=== PATIENT | female | born 1965 | race Two or more races ===

== ENCOUNTER 2020-11-05 05:41 | Emergency (ER) | payer MEDICAID, SELFPAY ==
[2020-11-05 05:53] VITALS: BP 137/86; PULSE 74; RESP 20; TEMP 36.6; O2SAT 99; BMI 42.6
--- NOTE | 2020-11-05 06:03 | PC.NURSE ---
AT BEDSIDE FOR PRIMARY ED EVALUATION.
--- NOTE | 2020-11-05 06:12 | CT_ITS ---
EXAMINATION: CG THORACIC AND LUMBAR SPINE. CT PELVIS. CLINICAL INFORMATION: Acute onset pain. Atraumatic. COMPARISON: None TECHNIQUE: 2 mm thin axial and reformatted 2 mm thin sagittal and coronal images of thoracic and lumbar spine were obtained about contrast. Subsequently a minute thin axial and reformatted 0.6 mm thin sagittal and coronal images of pelvis were obtained. DLP [id number]. FINDINGS: THORACIC SPINE: On sagittal reconstructed images there is maintained thoracic kyphosis. The vertebral heights and alignment is normal. There is loss of disc height virtually at all lumbar disc levels with vacuum disc phenomenon at the T6-T7, T7-T8 and T10-T11 disc levels with moderate ventral spondylosis. No lytic or sclerotic process seen. The paravertebral soft tissues are normal. LUMBAR SPINE: On sagittal reconstructed images there is normal lumbar lordosis. The vertebral heights and alignment appears normal. There is mild loss of L2-L3 disc height with vacuum disc phenomena. This mild ventral spondylosis as well. There is mild disc bulge at the L2-L3 with mild canal stenosis. Bilaterally neural foraminal narrowing is noted. L3-L4 disc level is mild diffuse bulge with mild canal narrowing. The neural foramina are narrowed bilaterally. There is underlying bilateral facet joint arthropathy and hypertrophy. At L4-L5 disc level there is diffuse disc bulge slightly eccentric to the right resulting in moderate right and mild left neural foraminal narrowing. At L5-S1 disc level there is no central disc bulge, herniation or spinal stenosis. The neural foramina are patent bilaterally. There is no lytic or sclerotic process seen. The paravertebral soft tissues are normal. PELVIS: There is subchondral cystic changes along the left acetabulum. There is minimal loss of bilateral hip joint space. Mild periarticular spurring is noted. No visible acute fracture, dislocation or lytic process seen. Vacuum disc phenomena along both SI joints. There is scattered colonic diverticulosis without diverticulitis. The soft tissues are normal. CT/CT thoracic spine wo con IMPRESSION: No acute fracture or dislocation thoracic or lumbar spine. Degenerative disc changes T6-T7 and T7-T8 disc levels and thoracic spine. There are degenerative disc bulges at L2-L3 through L5-S1 disc levels with mild circumferential canal stenosis at L2-L3 through L4-L5 disc levels. There is bilateral narrowing of neural foramina. At L5-S1 disc level the bulge is eccentric slightly to the right side with moderate right neural foraminal narrowing. Mild subchondral cystic changes in the left acetabulum with mild bilateral degenerative arthritic changes in the hip joints. No lytic or sclerotic process seen in the spine or the pelvis.
[2020-11-05 06:20] LABS: Basophils Percent Auto 0.5 % (0-2); Eosinophils Absolute Auto 0.2 X10*3/uL (0.0-0.4); Eosinophils Percent Auto 2.1 % (0-4); Hematocrit 38.5 % (37-47); Hemoglobin 12.4 g/dl (12.0-16.0); Imm Gran Abs Auto 0.01 X10*3/uL (0.00-0.03); Imm Gran Pct Auto 0.1 % (0.0-0.4); Lymphocytes Absolute Auto 3.8 X10*3/uL (1.2-4.9); Lymphocytes Percent Auto 42.4 % (20-40); Mean Corpuscular HGB Conc 32.2 g/dl (31.0-35.0); Mean Corpuscular Hemoglobin 29.9 pg (27.0-33.0); Mean Corpuscular Volume 92.8 fL (80-98); Mean Platelet Volume 12.7 fL (9.4-12.3); Monocytes Absolute Auto 1.1 X10*3/uL (0.1-1.2); Monocytes Percent Auto 12.3 % (2-11); Neutrophils Absolute Auto 3.8 X10*3/uL (2.0-8.3); Neutrophils Percent Auto 42.6 % (45-73); Platelet Count 205 X10*3/uL (160-400); Red Blood Count 4.15 X10*6/uL (4.20-5.50); Red Cell Distribution Width 12.3 % (11.0-16.0); White Blood Count 8.8 X10*3/uL (4.8-10.8)
[2020-11-05] MEDS: Acetaminophen 325 MG TABLET 975 MG PO (06:20)
[2020-11-05] MEDS: Ketorolac Tromethamine 15 MG/ML VIAL IM (06:20)
[2020-11-05 06:22] LABS: MANUAL DIFF FLAG NO
--- NOTE | 2020-11-05 06:35 | ED.BACK ---
HPI - Back Pain/Injury General Chief Complaint: Back Pain/Injury Stated Complaint: BACK AND HIP PAIN Time Seen by Provider: 11/05/20 05:43 Source: patient Mode of arrival: ambulatory History of Present Illness HPI Narrative: This is a 54-year-old female who presents with complaints acute on chronic thoracic and L-spine pain that she states has change in care after from previous. In addition, she is also experiencing significant left hip pain that she states radiates into the left lower extremity but denies any weakness. She denies any urine or fecal incontinence, fevers, chills, rashes, urinary pain/burning/frequency. Patient denies any falls or trauma to her back or hip. On review of her chart it appears that she is currently being evaluated by Heme-Onc for abnormal serum protein electrophoresis, but unfortunately the note is not available. Related Data Allergies Allergy/AdvReac Type Severity Reaction Status Date / Time No Known Allergies Allergy Unverified 08/08/20 16:58 [No Known Allergies*] Review of Systems Review of Systems: Pertinent positives and negatives as stated in HPI and 10 point review of systems is otherwise negative. PMFSH Past Medical History Source: nursing notes reviewed Medical History Asthma Back pain Diabetes Fibromyalgia Hip pain HTN (hypertension) MGUS (monoclonal gammopathy of unknown significance) Peripheral neuropathy Family History Family History Father Heart disease Stroke Mother Heart disease Maternal Uncle Colon cancer Maternal Uncle Throat cancer Social History Social History Alcohol intake: current Alcohol intake frequency: other Smoking Status: Current every day smoker Tobacco Type: Cigarette Cigarettes Per Day: 5 Advance Directives: No Advance Directives Information Provided: No Physical Exam Vital Signs: Vital Signs: Last Vital Signs Temp 97.8 F 11/05/20 05:53 Pulse 74 11/05/20 05:53 Resp 20 11/05/20 05:53 BP 137/86 11/05/20 05:53 Pulse Ox 99 11/05/20 05:53 Body Mass Index 42.6 VITAL SIGNS: Reviewed. GENERAL: Well developed, well nourished, in no acute distress. HEAD: Normocephalic/atraumatic, EYES: PERRLA, EOMI intact without pain, no nystagmus/pallor/icterus noted EARS: Ext canals without abnormality, TMs non-bulging and non-erythematous NOSE: Nares patent bilateral OROPHARYNX: no oral lesions noted, posterior pharynx clear and non-erythematous without noted tonsillar enlargement/erythema/exudates NECK: Supple, no adenopathy LUNGS: Normal breath sounds. No adventitious sounds or accessory muscle use. SpO2<99> CARDIOVASCULAR: Regular rate and rhythm without noted murmurs, no JVD or lower extremity edema. ABDOMEN: Soft, non-tender, non-distended with bowel sounds. No rigidity. No guarding. No palpable masses or hernias noted PELVIS: Stable MUSCULOSKELETAL: No tenderness, deformities, or effusions noted on gross inspection. EXTREMITIES: No cyanosis, clubbing or edema;LLE: Neurovascularly intact patient with some limited range of motion due to discomfort at the hip joint. SKIN: Inspection of the skin reveals no rashes, ulcerations, jaundice, pallor, or petechiae. NEUROLOGIC: Alert and oriented x 4. Strength and sensation to light touch were grossly intact x 4. Course Course Course Narrative: This is a 54-year-old female with history and clinical presentation consistent with likely acute on chronic arthritic pain, but due to history of MGUS and acute nature pain without trauma will ensure no evidence of bony abnormalities. In addition, patient will be treated with combination analgesics as well as basic labs. Signed out to Dr Glass: plan to d/c if no lytic lesions and analgesics for arthritis. MDM - Back Pain/Injury Lab Data Result diagrams: 11/05/20 06:15 11/05/20 06:15 Labs: Lab Results 11/05/20 11/05/20 Range/Units 06:15 06:15 WBC 8.8 (4.8-10.8) X10*3/uL RBC 4.15 L (4.20-5.50) X10*6/uL Hgb 12.4 (12.0-16.0) g/dl Hct 38.5 (37-47) % MCV 92.8 (80-98) fL MCH 29.9 (27.0-33.0) pg MCHC 32.2 (31.0-35.0) g/dl RDW 12.3 (11.0-16.0) % Plt Count 205 (160-400) X10*3/uL MPV 12.7 H (9.4-12.3) fL Immature Gran % (Auto) 0.1 (0.0-0.4) % Neut % (Auto) 42.6 L (45-73) % Lymph % (Auto) 42.4 H (20-40) % [place] % (Auto) 12.3 H (2-11) % Eos % (Auto) 2.1 (0-4) % Baso % (Auto) 0.5 (0-2) % Lymph # (Auto) 3.8 (1.2-4.9) X10*3/uL [place] # (Auto) 1.1 (0.1-1.2) X10*3/uL Eos # (Auto) 0.2 (0.0-0.4) X10*3/uL Baso # (Auto) 0.0 (0.0-0.2) X10*3/uL Abs Immat Gran (auto) 0.01 (0.00-0.03) X10*3/uL Absolute Neuts (auto) 3.8 (2.0-8.3) X10*3/uL Absolute Nucleated RBC 0.000 (0.0-0.012) X10*3/uL Nucleated RBC % (auto) 0.0 (0.0-0.2) /100WBC Sodium 140 (135-145) mmol/L Potassium 4.1 (3.3-5.1) mmol/l Chloride 108 (96-108) mmol/L Carbon Dioxide 25 (22-29) mmol/L Anion Gap 11 L (12-20) BUN 18 H (9-16) mg/dL Creatinine 0.71 (0.5-1.4) mg/dL Estim Creat Clear Calc 105.8 Estimated GFR > 60 Random Glucose 104 (60-115) mg/dL Calcium 8.7 (8.4-10.2) mg/dL Total Bilirubin 0.6 (0.0-1.0) mg/dL AST 15 (5-31) U/L ALT 14 (0-31) U/L Alkaline Phosphatase 49 (39-117) U/L Total Protein 7.5 (6.5-8.0) g/dL Albumin 4.1 (3.5-5.0) g/dL
[2020-11-05 06:55] LABS: Alanine Aminotransferase 14 U/L (0-31); Albumin Level 4.1 g/dL (3.5-5.0); Alkaline Phosphatase 49 U/L (39-117); Anion Gap 11 (12-20); Aspartate Amino Transferase 15 U/L (5-31); Bilirubin Total 0.6 mg/dL (0.0-1.0); Blood Urea Nitrogen 18 mg/dL (9-16); Calcium 8.7 mg/dL (8.4-10.2); Carbon Dioxide 25 mmol/L (22-29); Chloride 108 mmol/L (96-108); Creatinine Clr Calc Pharmacy 105.8; Estimated Glomerular Filt Rate > 60; Glucose Random 104 mg/dL (60-115); Potassium 4.1 mmol/l (3.3-5.1); Sodium 140 mmol/L (135-145); Total Protein 7.5 g/dL (6.5-8.0)
[2020-11-05 07:29] VITALS: BP 150/67; PULSE 67; RESP 18; O2SAT 98
[2020-11-05 08:20] VITALS: BP 113/54; PULSE 61; RESP 15; O2SAT 99
== END 2020-11-05 08:51 | disposition home or self-care (01) ==
PROVIDERS: Emergency Provider Student in an Organized Health Care Education/Training Program; PCP Internal Medicine
DX: M54.5 Low back pain (principal); M25.552 Pain in left hip; M25.551 Pain in right hip
CPT/HCPCS: 36415; 72128; 72131; 72192; 80053; 85025; 96372; 99284; J1885

== ENCOUNTER 2020-11-20 14:09 | Emergency (ER) | payer OTHER, SELFPAY ==
[2020-11-20 14:36] VITALS: BP 185/78; PULSE 84; RESP 16; TEMP 36.8; O2SAT 97; BMI 39.9
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
== END 2020-11-20 17:00 | disposition home or self-care (01) ==
PROVIDERS: Emergency Provider Emergency Medicine; PCP Internal Medicine
DX: S16.1XXA Strain of muscle, fascia and tendon at neck level, initial encounter (principal); V43.52XA Car driver injured in collision with other type car in traffic accident, initial encounter; I10 Essential (primary) hypertension; E11.9 Type 2 diabetes mellitus without complications; F17.210 Nicotine dependence, cigarettes, uncomplicated; Y93.89 Activity, other specified; Y92.414 Local residential or business street as the place of occurrence of the external cause; Y99.9 Unspecified external cause status
CPT/HCPCS: 99283

== ENCOUNTER 2020-12-12 09:25 | Outpatient (REF) | payer MEDICAID, SELFPAY | END 2020-12-12 09:26 | disposition home or self-care (01) | LOC: HO.HOSX 09:25 | PROVIDERS: Visit Provider Orthopaedic Surgery | DX: Z13.89 Encounter for screening for other disorder (principal) ==

== ENCOUNTER 2021-01-10 14:22 | Outpatient (REF) | payer MEDICAID, SELFPAY ==
--- NOTE | ~2021-01-10 | XR_ITS ---
EXAMINATION: PELVIS AND LEFT HIP X-RAY CLINICAL INFORMATION: Pain COMPARISON: Previous left hip x-ray March [address] of the pelvis October 2020 TECHNIQUE: One view of the pelvis and 2 views of the left hip FINDINGS: There is bilateral hip arthritis with joint space narrowing and osteophyte formation, left greater than right. No fracture, dislocation or bone lesion is seen. Bones of the pelvis are unremarkable. Soft tissues are unremarkable. XR/XR pelvis 1-2V IMPRESSION: Left hip arthritis.
--- NOTE | ~2021-01-10 | XR_ITS ---
EXAMINATION: PELVIS AND LEFT HIP X-RAY CLINICAL INFORMATION: Pain COMPARISON: Previous left hip x-ray March [address] of the pelvis October 2020 TECHNIQUE: One view of the pelvis and 2 views of the left hip FINDINGS: There is bilateral hip arthritis with joint space narrowing and osteophyte formation, left greater than right. No fracture, dislocation or bone lesion is seen. Bones of the pelvis are unremarkable. Soft tissues are unremarkable. XR/XR hip LT min 2V IMPRESSION: Left hip arthritis.
== END 2021-01-10 14:23 | disposition home or self-care (01) ==
LOC: HO.XRAY 14:22
PROVIDERS: PCP Internal Medicine; Visit Provider Student in an Organized Health Care Education/Training Program
DX: M47.816 Spondylosis without myelopathy or radiculopathy, lumbar region (principal); M25.552 Pain in left hip
CPT/HCPCS: 72170; 73502; 99212

== ENCOUNTER 2021-01-28 18:55 | Outpatient (REF) | payer MEDICAID, SELFPAY ==
--- NOTE | ~2021-01-28 | MR_ITS ---
EXAMINATION: MR LUMBAR SPINE WITHOUT CONTRAST CLINICAL INFORMATION: 55-year-old with complaints of low back pain radiating to the left leg. Spondylosis without myelopathy or radiculopathy, lumbar region. COMPARISON: None TECHNIQUE: MRI of the lumbar spine was obtained using routine sequences without contrast. Technical Note: Images were degraded by motion artifact. FINDINGS: Coronal Alignment:?Normal. Sagittal Alignment:?A 3 mm grade 1 degenerative spondylolisthesis noted at L3-L4. Otherwise, normal spinal alignment. Lumbosacral Junction:?Normal. Vertebral Bodies: Normal height. Bone Marrow: Degenerative endplate changes at L2-L3. No suspicious marrow replacing process. Mild marrow edema noted in the left L4 pedicle which is nonspecific but may be secondary to reactive changes from facet arthropathy or stress reaction. Conus Medullaris:?Terminates at L1.?Morphology and signal is normal. Intradural Nerve Roots: Crowding of the intradural nerve roots at L3-L4. Otherwise, unremarkable. SPINAL LEVELS: L5-S1: Disc space height and signal are well maintained. Small left-sided inferior foraminal disc protrusion noted without definite neural impingement. No significant spondylosis. Minor facet arthrosis noted on the right with a mild right lateral disc osteophyte complex and mild right-sided neural foraminal stenosis. Prominent epidural fat noted at this level, with a small thecal sac with no significant bony or ligamentous canal stenosis. L4-L5: Disc space height is relatively well maintained, with disc desiccation consistent with disc degenerative change. There is anterior and right paravertebral spondylosis and mild diffuse disc bulging encroaching on the neural foramina bilaterally with mild bilateral facet arthropathy. No significant spinal canal stenosis. There is thnp-nq-izxyzgzm right-sided and mild left-sided neural foraminal stenosis with mild encroachment on the exiting right L4 nerve root. L3-L4: Pihi-xo-knvcinqc loss of disc space height is noted with disc desiccation consistent with disc degenerative change. There is grade 1 degenerative spondylolisthesis with diffuse disc bulging with superimposed extraforaminal/foraminal disc herniations bilaterally. There is moderate bilateral facet arthropathy with dtgllgpa-vs-zbyzuc bilateral neural foraminal stenosis, right more the left, with bilateral L3 nerve root impingement. There is prominent epidural fat with a constricted appearance to the dural sac at this level and there is ligamentum flavum thickening with moderate central spinal canal stenosis and crowding of the intradural nerve roots. L2-L3: Moderate loss of disc space height is noted with disc desiccation, Schmorl's nodes and type I and type II marrow signal changes along the endplates with anterior and paravertebral spondylosis. There is diffuse disc bulging with mild flattening of the dural sac and there is mild ligamentum flavum thickening with prominent epidural fat and mild right-sided facet arthrosis. There is nctx-uc-bohzgwzp neural foraminal stenosis bilaterally and there is a mildly constricted appearance to the dural sac with crowding of the intradural nerve roots. L1-L2: Disc space height and signal are well maintained with no significant disc bulge or herniation and no significant spondylosis, DJD, canal or neural foraminal stenosis. Paraspinal/Retroperitoneal: Visualized retroperitoneal soft tissues appear unremarkable. Paraspinal soft tissues appear unremarkable. MR/MR lumbar spine wo con IMPRESSION: 1. Grade 1 degenerative spondylolisthesis at L3-L4 with a possible mild stress reaction in the left L4 pedicle. 2. Discogenic degenerative changes at L2-L3, L3-L4 and L4-L5 as discussed above with multilevel bilateral facet arthropathy and prominent epidural fat throughout the zrz-hd-vgjho lumbar spine with a constricted appearance to the dural sac. 3. Multilevel disc bulging as described above, with moderate spinal canal stenosis at L3-L4 with crowding of the intradural nerve roots and mild spinal canal stenosis at L2-L3 with mild crowding. 4. Multilevel bilateral neural foraminal stenosis as discussed above most apparent at L3-L4 bilaterally. Bilateral L3 nerve root impingement noted at L3-L4 and mild impingement on the exiting right L4 nerve root.
== END 2021-01-28 18:56 | disposition home or self-care (01) ==
LOC: HO.MRI 18:55
PROVIDERS: Visit Provider Student in an Organized Health Care Education/Training Program
DX: M47.816 Spondylosis without myelopathy or radiculopathy, lumbar region (principal)
CPT/HCPCS: 72148

== ENCOUNTER 2021-02-15 07:32 | Emergency (ER) | payer MEDICAID, SELFPAY ==
--- NOTE | ~2021-02-15 | XR_ITS ---
EXAMINATION: XR HIP, LEFT CLINICAL INFORMATION: Left-sided hip pain COMPARISON: Left hip x-rays 01/10/2021 TECHNIQUE: Two views of the left hip. FINDINGS: No fracture or dislocation of the left hip. Femoral head is well-seated within the acetabulum. Mild narrowing of the left femoral acetabular joint space. Small osteophyte along the superolateral left acetabular margin. Pelvic ring is intact. Mild degenerative changes of the partially visualized right hip. XR/XR hip LT w PEL1V IMPRESSION: Mild degenerative changes of the left hip without fracture or dislocation.
[2021-02-15 07:34] VITALS: BP 160/72; PULSE 71; RESP 20; TEMP 36.4; O2SAT 98; BMI 40.9
--- NOTE | 2021-02-15 08:30 | ED.EXTPRO ---
HPI - Extremity Problem General Chief complaint: Extremity Problem Stated complaint: hip pain Time Seen by Provider: 02/15/21 08:24 History of Present Illness HPI Narrative: This is a pleasant 55 years old female who presented to the emergency room a ambulatory with a chief complaint of left hip pain. Denies any trauma, injury, fever, vomiting. She has history of arthritis she is currently taking Naprosyn b.i.d. without any relief of the pain. The pain is worsened in the morning when she gets out of the bed get better during the day today she came because the pain was unbearable Related Data Home Medications Medication Instructions Recorded Confirmed albuterol sulfate 90 mcg/actuation 2 puff INHALATION 6XD 11/28/20 01/10/21 aerosol inhaler lisinopril 10 mg tablet 10 mg PO DAILY 11/28/20 01/10/21 metformin 1,000 mg tablet 1,000 mg PO DAILY 11/28/20 01/10/21 zolpidem 10 mg tablet 10 mg PO BEDTIME PRN 11/28/20 01/10/21 Previous Rx's Medication Instructions Recorded baclofen 10 mg tablet 10 mg PO TID #90 tab 11/07/20 cyclobenzaprine 10 mg PO TID PRN #10 tab 11/20/20 lidocaine [Lidoderm] 1 patch TOPICAL DAILY #15 ea 11/20/20 naproxen 500 mg tablet 500 mg PO BID PRN #60 tab 02/04/21 oxycodone 5 mg PO Q8H PRN #12 cap 02/15/21 Allergies Allergy/AdvReac Type Severity Reaction Status Date / Time No Known Allergies Allergy Verified 02/15/21 07:34 [No Known Allergies*] Review of Systems Review of Systems: Yes all other systems are reviewed and are negative [facility] Past Medical History Medical History Asthma Back pain Diabetes Fibromyalgia Hip pain HTN (hypertension) MGUS (monoclonal gammopathy of unknown significance) Peripheral neuropathy Family History Family History Father Heart disease Stroke Mother Heart disease Maternal Uncle Colon cancer Maternal Uncle Throat cancer Social History Social History Alcohol intake: current Alcohol intake frequency: does not drink Smoking Status: Current every day smoker Tobacco Type: Cigarette Cigarettes Per Day: 5 Use of substances other than those prescribed or required for medical reasons: No Advance Directives: No Advance Directives Information Provided: No Physical Exam Vital Signs: Vital Signs: Last Vital Signs Temp 97.6 F 02/15/21 07:34 Pulse 68 02/15/21 08:44 Resp 16 02/15/21 08:44 BP 140/71 H 02/15/21 08:44 Pulse Ox 98 02/15/21 08:44 Body Mass Index 40.9 Const: General: cooperative, healthy appearing, comfortable, no acute distress, well developed, alert and awake HENMT: Head: Yes normal to inspection Eyes: General: appearance normal, both eyes and all related structures Neck: Neck: Yes normal visual inspection and Yes full ROM Chest: Chest palpation & inspection: normal inspection of the chest and normal palpation of entire chest wall Resp: Effort & Inspection: normal respiratory effort Cardio: Jugular venous distension: no JVD Rate: regular rate GI: Other: Abdomen is soft not tender Skin: Other: Skin is moist no rash Neuro: Other: Patient is awake alert oriented x3 Extrem: Other: On extremity examination and there is tenderness in the left hip per range of motion is full somewhat painful nice rotation seen no deformity seen MDM - Extremity (Nontraumatic) MDM Narrative Medical decision making narrative: I review the x-ray of the hip and pelvis to my review there is no fracture dislocation, patient does have DJD. I think she can be discharged home with follow-up with primary care physician. She is already on naproxen b.i.d. I will home health aide caregiver for 12 tablets of oxycodone for breakthrough pain. Imaging Data xray hip: Attestation: I personally reviewed and interpreted this imaging study as follows: Radiologist's impression: elise PHELPS Date of Service: 01/10/21 Procedure(s): XR hip LT min 2V Accession Number(s): [id number] cc: Kurt Morales MD~ EXAMINATION: PELVIS AND LEFT HIP X-RAY CLINICAL INFORMATION: Pain COMPARISON: Previous left hip x-ray March [address] of the pelvis October 2020 TECHNIQUE: One view of the pelvis and 2 views of the left hip FINDINGS: There is bilateral hip arthritis with joint space narrowing and osteophyte formation, left greater than right. No fracture, dislocation or bone lesion is seen. Bones of the pelvis are unremarkable. Soft tissues are unremarkable. XR/XR hip LT min 2V IMPRESSION: Left hip arthritis. Discharge Plan Discharge Clinical Impression: Left hip pain Patient Disposition: Home, Self-Care Instructions: Hip Pain (ED) Additional Instructions: Please follow-up with the orthopedist, return if you worse Prescriptions: New oxycodone 5 mg capsule 5 mg PO Q8H PRN (Reason: pain) Qty: 12 RF: 0 No Action baclofen 10 mg tablet 10 mg PO TID Qty: 90 RF: 5 lisinopril [Zestril] 10 mg tablet 10 mg PO DAILY RF: 0 metformin 1,000 mg tablet 1,000 mg PO DAILY RF: 0 albuterol sulfate [ProAir HFA] 90 mcg/actuation HFA aerosol inhaler 2 puff inhalation 6XD RF: 0 zolpidem [Ambien] 10 mg tablet 10 mg PO BEDTIME PRNRF: 0 naproxen 500 mg tablet 500 mg PO BID PRN (Reason: pain) Qty: 60 RF: 3 cyclobenzaprine 10 mg tablet 10 mg PO TID PRN (Reason: muscle spasm) Qty: 10 RF: 0 lidocaine [Lidoderm] 5 % adhesive patch,medicated 1 patch topical DAILY Qty: 15 RF: 0 Referrals: Micha Altamirano MD [Physician] - 3 days Interventions: ED Discharge Assessment Last Done: 02/15/21 09:27 Discharge Date/Time: 02/15/21 09:27
[2021-02-15] MEDS: oxyCODONE HCl Immed Release 5 MG TABLET 10 MG PO (08:42)
[2021-02-15 08:44] VITALS: BP 140/71; PULSE 68; RESP 16; O2SAT 98
== END 2021-02-15 09:27 | disposition home or self-care (01) ==
PROVIDERS: Emergency Provider Emergency Medicine; PCP Internal Medicine
DX: M25.552 Pain in left hip (principal); I10 Essential (primary) hypertension; E11.9 Type 2 diabetes mellitus without complications; Z79.899 Other long term (current) drug therapy; F17.210 Nicotine dependence, cigarettes, uncomplicated; Z71.6 Tobacco abuse counseling; Z79.84 Long term (current) use of oral hypoglycemic drugs
CPT/HCPCS: 73502; 99283; 99284

== ENCOUNTER → 2021-02-18 12:54 | Outpatient (BNVA) | payer MEDICAID, SELFPAY | PROVIDERS: PCP Internal Medicine; Visit Provider Nurse Practitioner Family | DX: M47.27 Other spondylosis with radiculopathy, lumbosacral region (principal); M16.12 Unilateral primary osteoarthritis, left hip; M25.552 Pain in left hip | CPT/HCPCS: 99202 ==

== ENCOUNTER → 2021-02-21 09:11 | Outpatient (BNVA) | payer MEDICAID, SELFPAY | PROVIDERS: PCP Internal Medicine; Visit Provider Physician Assistant | DX: M16.12 Unilateral primary osteoarthritis, left hip (principal); M47.27 Other spondylosis with radiculopathy, lumbosacral region | CPT/HCPCS: 99202 ==

== ENCOUNTER 2021-03-07 15:03 | Outpatient (REF) | payer MEDICAID, SELFPAY ==
--- NOTE | ~2021-03-07 | XR_ITS ---
EXAMINATION: XR KNEE, LEFT CLINICAL INFORMATION: Pain COMPARISON: None TECHNIQUE: Four views of the left knee. Frontal lateral oblique and patella sunrise view. FINDINGS: Bones and soft tissues are normal. No fracture or joint effusion. Alignment is anatomic. Joint spaces are well maintained. No abnormal soft tissue calcification. XR/XR knee LT 3V IMPRESSION: Normal radiograph.
== END 2021-03-07 15:04 | disposition home or self-care (01) ==
LOC: HO.XRAY 15:03
PROVIDERS: PCP Internal Medicine; Visit Provider Student in an Organized Health Care Education/Training Program
DX: M25.562 Pain in left knee (principal)
CPT/HCPCS: 73562; 99212

== ENCOUNTER 2021-03-25 06:09 | Outpatient (REF) | payer MEDICAID, SELFPAY ==
--- NOTE | ~2021-03-25 | FL_ITS ---
EXAMINATION: XR FLUOROSCOPY WITH IMAGES CLINICAL INFORMATION: M47.27 - Other spondylosis with radiculopathy COMPARISON: MR lumbar spine 01/28/2021 TECHNIQUE: Fluoroscopy performed by Char Feliz NP. Fluoroscopy time: 0.3 minutes DAP: 7.31 Gycm2 Images: 1 FINDINGS: There is spinal needle overlying outer aspect left L3 neuroforamen. There is contrast seen in the nerve sheath along with transforaminal epidural extension. FL/FL guidance in treatment room IMPRESSION: Fluoroscopy for pain management procedure.
== END 2021-03-25 06:10 | disposition home or self-care (01) ==
LOC: HO.RADIR 06:09
PROVIDERS: Visit Provider Anesthesiology
DX: M47.27 Other spondylosis with radiculopathy, lumbosacral region (principal)
CPT/HCPCS: 64483; J3300; Q9967

== ENCOUNTER → 2021-04-30 10:52 | Outpatient (BNVA) | payer MEDICAID, SELFPAY | PROVIDERS: PCP Internal Medicine; Visit Provider Nurse Practitioner Family | DX: M16.12 Unilateral primary osteoarthritis, left hip (principal); M47.816 Spondylosis without myelopathy or radiculopathy, lumbar region | CPT/HCPCS: 99212 ==

== ENCOUNTER 2021-05-14 08:35 | Emergency (ER) | payer MEDICAID, SELFPAY ==
--- NOTE | ~2021-05-14 | XR_ITS ---
EXAMINATION: XR CHEST CLINICAL INFORMATION: SOB, difficulty breathing COMPARISON: None TECHNIQUE: Frontal view of the chest was obtained. FINDINGS: No significant abnormality is noted involving the heart, lungs, mediastinum, bony thorax or soft tissues. XR/XR chest 1V IMPRESSION: Unremarkable chest examination.
[2021-05-14 08:54] VITALS: BP 167/133; PULSE 89; RESP 22; TEMP 36.8; O2SAT 97; BMI 39.3
--- NOTE | 2021-05-14 09:05 | ECG_ITS ---
Test Reason : DYSPNEA Blood Pressure : / mmHG Vent. Rate : 081 BPM Atrial Rate : 081 BPM P-R Int : 124 ms QRS Dur : 084 ms QT Int : 362 ms P-R-T Axes : 006 009 022 degrees QTc Int : 420 ms Normal sinus rhythm Low voltage QRS Borderline ECG When compared with ECG of 23-JUN-2020 01:38, No significant change was found Referred By: Sarah Hinojosa Electronically Signed By:Floyd Henriquez
[2021-05-14 09:24] VITALS: BP 138/91; PULSE 87; RESP 19; TEMP 36.8; O2SAT 98
--- NOTE | 2021-05-14 09:37 | ED_ITS ---
HPI - SOB/Dyspnea General Chief Complaint: Dyspnea <MICKEY Price - Last Filed: 05/14/21 11:30> Stated Complaint: asthma <MICKEY Price - Last Filed: 05/14/21 11:30> Time Seen by Provider: 05/14/21 09:04 <MICKEY Price Last Filed: 05/14/21 11:30> Source: patient <MICKEY Price - Last Filed: 05/14/21 11:30> Mode of arrival: ambulatory <MICKEY Price - Last Filed: 05/14/21 11:30> Limitations: no limitations <MICKEY Price Last Filed: 05/14/21 11:30> History of Present Illness HPI Narrative: 55 y/o female with history of asthma, active smoker, morbid obesity, OA, chronic back pain who presents to the ER with worsening SOB and wheezing for the last 3 days. She has been taking her asthma inhalers as directed. She continues to smoke cigarettes. She does not know the triggers for her asthma but has required to come to the ED for this in the past. She denies hospitalizations or intubations for her asthma. She denies fever or chills. She has a dry cough and chest discomfort when she coughs. No known sick contacts. She is fully vaccinated against COVID-19. <MICKEY Price - Last Filed: 05/14/21 11:30> MD elicited complaint: shortness of breath <MICKEY Price - Last Filed: 05/14/21 11:30> Pertinent past history: asthma <MICKEY Price - Last Filed: 05/14/21 11:30> Onset (ago): day(s) (3) <MICKEY Price - Last Filed: 05/14/21 11:30> Timing: constant <MICKEY Price - Last Filed: 05/14/21 11:30> Severity: moderate <MICKEY Price Last Filed: 05/14/21 11:30> Exacerbating factors: lying flat and exertion <MICKEY Price Last Filed: 05/14/21 11:30> Relieving factors: rest and bronchodilators <MICKEY Price - Last Filed: 05/14/21 11:30> Known history of: asthma <MICKEY Price - Last Filed: 05/14/21 11:30> Associated symptoms: cough, wheezing and orthopnea <MICKEY Price - Last Filed: 05/14/21 11:30> Treatment prior to arrival: none <MICKEY Price - Last Filed: 05/14/21 11:30> Related Data Home oxygen amount: none <MICKEY Price - Last Filed: 05/14/21 11:30> Home Medications: Home Medications Medication Instructions Recorded Confirmed albuterol sulfate 90 mcg/actuation 2 puff INHALATION 6XD 11/28/20 05/20/21 aerosol inhaler lisinopril 10 mg tablet 10 mg PO DAILY 11/28/20 05/20/21 metformin 1,000 mg tablet 1,000 mg PO DAILY 11/28/20 05/20/21 zolpidem 10 mg tablet 10 mg PO BEDTIME PRN 11/28/20 05/20/21 ergocalciferol (vitamin D2) 50 mcg 50 mcg PO DAILY 05/20/21 05/20/21 (2,000 unit) tablet gabapentin 800 mg tablet 800 mg PO TID 05/20/21 05/20/21 glipizide 5 mg tablet 5 mg PO DAILY 05/20/21 05/20/21 ibuprofen 800 mg tablet 800 mg PO Q6H 05/20/21 05/20/21 sertraline 50 mg tablet 50 mg PO DAILY 05/20/21 05/20/21 tramadol 50 mg tablet 50 mg PO Q6H PRN 05/20/21 05/20/21 trazodone 100 mg tablet 100 mg PO BEDTIME PRN 05/20/21 05/20/21 Previous Rx's Medication Instructions Recorded baclofen 10 mg tablet 10 mg PO TID #90 tab 11/07/20 cyclobenzaprine 10 mg PO TID PRN #10 tab 11/20/20 lidocaine [Lidoderm] 1 patch TOPICAL DAILY #15 ea 11/20/20 diclofenac sodium 1 % topical gel 2 g TOPICAL QID #100 g 03/07/21 leg brace #1 ea 03/07/21 tizanidine 2 mg tablet 2 mg PO BEDTIME PRN #30 tab 04/30/21 azithromycin See Rx Instructions .ROUTE 05/14/21 .COMPLEX #6 tab azithromycin [Zithromax Z-Conrado] See Rx Instructions .ROUTE 05/14/21 .COMPLEX #6 tab benzonatate [Tessalon Perles] 100 mg PO BID PRN #20 cap 05/14/21 benzonatate [Tessalon Perles] 100 mg PO TID PRN #20 cap 05/14/21 prednisone 10 mg PO PER PKG DIR #48 ea 05/14/21 prednisone 40 mg PO DAILY 5 Days #10 tab 05/14/21 fluticasone fur. 200 mcg-umeclid 1 inh INHALATION DAILY 30 Days #60 05/20/21 62.5 mcg-vilant 25 mcg ea inhalat.powder nicotine 14 mg/24 hr daily 1 patch TRANSDERMAL DAILY 28 Days 05/20/21 transdermal patch #28 ea diazepam 5 mg tablet 5 mg PO ONCE PRN #2 tab 06/03/21 naproxen 500 mg tablet 500 mg PO BID PRN #60 tab 06/10/21 <MICKEY Price - Last Filed: 05/14/21 11:30> Allergies/Adverse Reactions: Allergies Allergy/AdvReac Type Severity Reaction Status Date / Time No Known Allergies Allergy Verified 05/20/21 14:19 [No Known Allergies*] <MICKEY Price Last Filed: 05/14/21 11:30> Review of Systems Review of Systems: Constitutional: No Fever, No Chills ENT/Mouth: No sore throat, No Rhinorrhea, No Swallowing Difficulty Eyes: No Eye Pain, No Swelling, No Redness Cardiovascular: + Chest Pain, + SOB, + Orthopnea, No Edema Respiratory: + Cough, No Sputum, + Wheezing, + dyspnea Gastrointestinal: No Nausea, No Vomiting, No Diarrhea, No abdominal Pain Genitourinary: No Dysuria, No Urinary Frequency, No Hematuria Musculoskeletal: No joint pain, No Myalgias Skin: No Skin Lesions, No rash Neuro: No Weakness, No Numbness, No Dizziness, No Headache Psych: No Anxiety/Panic, No Depression Heme/Lymph: No Bruising, No Lymphadenopathy Endocrine: No Polyuria, No Polydipsia <MICKEY Price Last Filed: 05/14/21 11:30> PMFSH Past Medical History Attestation statement: The following information was validated with the patient. <MICKEY Price - Last Filed: 05/14/21 11:30> Medical History: Medical History (Updated 06/06/21 @ 14:25 by Lis Beckman PA-C) Asthma Asthma-COPD overlap syndrome Hip pain HTN (hypertension) MGUS (monoclonal gammopathy of unknown significance) Obesity Peripheral neuropathy Personal history of nicotine dependence Spondylosis of lumbosacral spine with radiculopathy Type 2 diabetes mellitus with diabetic neuropathy, without long-term current use of insulin <MICKEY Price - Last Filed: 05/14/21 11:30> Family History Family History: Family History (Reviewed 03/07/21 @ 15:08 by Zahra Dorsey [facility]) Father Heart disease Stroke Mother Heart disease Maternal Uncle Colon cancer Maternal Uncle Throat cancer <MICKEY Price - Last Filed: 05/14/21 11:30> Social History Social History: Social History (Updated 06/06/21 @ 14:24 by Lis Beckman PA-C) Alcohol intake: current Alcohol intake frequency: does not drink Patient Tobacco Use Status: Current everyday Tobacco user Tobacco use type: Cigarette Cigarettes Per Day: 5 Years Smoked: 36 (onset 19yo - 1/2-1ppd - 27pyh) <MICKEY Price - Last Filed: 05/14/21 11:30> Physical Exam Vital Signs: Vital Signs: Last Vital Signs Temp 98.2 F 05/14/21 09:24 Pulse 90 05/14/21 11:34 Resp 19 05/14/21 09:24 BP 138/91 H 05/14/21 09:24 Pulse Ox 97 05/14/21 11:34 Body Mass Index 39.3 Appearance: Alert. Oriented X3. Mild respiratory distress Eyes: Pupils equal, round and reactive to light. ENT: Pharynx normal. Neck: Normal inspection. Neck supple. CVS: Normal heart rate and rhythm. Pulses normal. Respiratory: Mild respiratory distress. Breath sounds with end expiratory wheeze at bilateral bases to middle lung carlos, prolonged expiratory phase, no rales and no rhonchi. Abdomen: Obese, Soft and nontender. +BS x4 Skin: Skin warm and dry. Normal skin color. Normal skin turgor. No rashes. Extremities: No lower extremity edema. Negative Levi's sign Neuro: Oriented X 3. No motor deficit. No sensory deficit. <MICKEY Price - Last Filed: 05/14/21 11:30> Vital Signs: Last Vital Signs Temp 98.2 F 05/14/21 09:24 Pulse 90 05/14/21 11:34 Resp 19 05/14/21 09:24 BP 138/91 H 05/14/21 09:24 Pulse Ox 97 05/14/21 11:34 Body Mass Index 39.3 <Mick Glass MD - Last Filed: 06/15/21 16:13> Course Course Course Narrative: 55 y/o female presenting with SOB, dry cough for the last 3 days. Exam and clinical presentation is most consistent with asthma exacerbation, likely related to smoking cigarettes and high humidity. She is afebrile. Will get CXR t o r/o PNA. EKG and troponin ordered to r/o ACS although this is less likely given her wheezing. She denies CHF but will check BNP given her SOB when laying flat. Will give hour long albuterol neb, IV steroids, IV mag and reassess. Dispo pending results and improvement. <MICKEY Price - Last Filed: 05/14/21 11:30> I have reviewed the chart <Mick Glass MD - Last Filed: 06/15/21 16:13> Reevaluation(s) Reevaluation #1: CXR clear. Labs are unremarkable. She is feeling much better after treatment. Lung sounds improved. She would like to go home. She is stable for d/c home with prednisone taper, anti-tussive and Z-conrado. Encouraged to stop smoking and f/u with her PCP and Pulmonology. Pt agrees with plan and will return to the ER if symptoms worsen. <MICKEY Price - Last Filed: 05/14/21 11:30> MDM - SOB/Dyspnea Differential Diagnosis Differential diagnosis: Likely acute exacerbation of chronic obstructive airways disease, congestive heart failure, pneumonia, asthma with exacerbation and sleep apnea <MICKEY Price - Last Filed: 05/14/21 11:30> Medical Records Attestation: I reviewed the patient's medical records. <MICKEY Price - Last Filed: 05/14/21 11:30> Lab Data Attestation: I reviewed the patient's lab results. <MICKEY Price - Last Filed: 05/14/21 11:30> Result diagrams: : 05/14/21 09:43 05/14/21 09:43 <MICKEY Price - Last Filed: 05/14/21 11:30> Labs: Lab Results 05/14/21 05/14/21 05/14/21 Range/Units 09:43 09:43 09:43 WBC 10.3 (4.8-10.8) X10*3/uL RBC 4.37 (4.20-5.50) X10*6/uL Hgb 13.0 (12.0-16.0) g/dl Hct 39.9 (37-47) % MCV 91.3 (80-98) fL MCH 29.7 (27.0-33.0) pg MCHC 32.6 (31.0-35.0) g/dl RDW 12.3 (11.0-16.0) % Plt Count 179 (160-400) X10*3/uL MPV 13.5 H (9.4-12.3) fL Immature Gran % (Auto) 0.4 (0.0-0.4) % Neut % (Auto) 54.0 (45-73) % Lymph % (Auto) 34.8 (20-40) % Graham % (Auto) 9.4 (2-11) % Eos % (Auto) 1.0 (0-4) % Baso % (Auto) 0.4 (0-2) % Lymph # (Auto) 3.6 (1.2-4.9) X10*3/uL Graham # (Auto) 1.0 (0.1-1.2) X10*3/uL Eos # (Auto) 0.1 (0.0-0.4) X10*3/uL Baso # (Auto) 0.0 (0.0-0.2) X10*3/uL Abs Immat Gran (auto) 0.04 H (0.00-0.03) X10*3/uL Absolute Neuts (auto) 5.5 (2.0-8.3) X10*3/uL Absolute Nucleated RBC 0.000 (0.0-0.012) X10*3/uL Nucleated RBC % (auto) 0.0 (0.0-0.2) /100WBC Hold Blue Top SEE NOTE Sodium 142 (135-145) mmol/L Potassium 4.4 (3.3-5.1) mmol/L Chloride 107 (96-108) mmol/L Carbon Dioxide 23 (22-29) mmol/L Anion Gap 16 (12-20) BUN 19 H (9-16) mg/dL Creatinine 0.78 (0.5-1.4) mg/dL Estim Creat Clear Calc 90.9 Estimated GFR > 60 Random Glucose 171 H D (60-115) mg/dL Calcium 9.5 D (8.4-10.2) mg/dL Magnesium 1.5 L (1.6-2.6) mg/dL Total Bilirubin 0.6 (0.0-1.0) mg/dL Direct Bilirubin 0.2 (0.0-0.5) mg/dL AST 18 (5-31) U/L ALT 14 (0-31) U/L Alkaline Phosphatase 41 (39-117) U/L Troponin I High Sens (<3.5-17.0) ng/L B-Natriuretic Peptide (<100) pg/mL Total Protein 7.6 (6.5-8.0) g/dL Albumin 4.3 (3.5-5.0) g/dL Urine Color Urine Appearance Urine pH (5.0-8.0) Ur Specific [place] (1.005-1.025) Urine Protein (NEG-TRACE) MG/DL Urine Glucose (UA) (NEG) MG/DL Urine Ketones (NEG) MG/DL Urine Blood (NEG) Urine Nitrite (NEG) Ur Leukocyte Esterase (NEG) Urine RBC (0) /HPF Urine WBC (0-4) /HPF Ur Squamous Epith Cells /LPF Urine Bacteria /LPF Urine Mucus /LPF COVID-19 (SHIRA) (Negative) COVID-19 Clin Com 05/14/21 05/14/21 05/14/21 Range/Units 09:43 09:44 09:45 WBC (4.8-10.8) X10*3/uL RBC (4.20-5.50) X10*6/uL Hgb (12.0-16.0) g/dl Hct (37-47) % MCV (80-98) fL MCH (27.0-33.0) pg MCHC (31.0-35.0) g/dl RDW (11.0-16.0) % Plt Count (160-400) X10*3/uL MPV (9.4-12.3) fL Immature Gran % (Auto) (0.0-0.4) % Neut % (Auto) (45-73) % Lymph % (Auto) (20-40) % Graham % (Auto) (2-11) % Eos % (Auto) (0-4) % Baso % (Auto) (0-2) % Lymph # (Auto) (1.2-4.9) X10*3/uL Graham # (Auto) (0.1-1.2) X10*3/uL Eos # (Auto) (0.0-0.4) X10*3/uL Baso # (Auto) (0.0-0.2) X10*3/uL Abs Immat Gran (auto) (0.00-0.03) X10*3/uL Absolute Neuts (auto) (2.0-8.3) X10*3/uL Absolute Nucleated RBC (0.0-0.012) X10*3/uL Nucleated RBC % (auto) (0.0-0.2) /100WBC Hold Blue Top Sodium (135-145) mmol/L Potassium (3.3-5.1) mmol/L Chloride (96-108) mmol/L Carbon Dioxide (22-29) mmol/L Anion Gap (12-20) BUN (9-16) mg/dL Creatinine (0.5-1.4) mg/dL Estim Creat Clear Calc Estimated GFR Random Glucose (60-115) mg/dL Calcium (8.4-10.2) mg/dL Magnesium (1.6-2.6) mg/dL Total Bilirubin (0.0-1.0) mg/dL Direct Bilirubin (0.0-0.5) mg/dL AST (5-31) U/L ALT (0-31) U/L Alkaline Phosphatase (39-117) U/L Troponin I High Sens < 3.5 (<3.5-17.0) ng/L B-Natriuretic Peptide < 10 (<100) pg/mL Total Protein (6.5-8.0) g/dL Albumin (3.5-5.0) g/dL Urine Color YELLOW Urine Appearance CLOUDY Urine pH 5.5 (5.0-8.0) Ur Specific [place] >= 1.030 H (1.005-1.025) Urine Protein TRACE (NEG-TRACE) MG/DL Urine Glucose (UA) NEG (NEG) MG/DL Urine Ketones NEG (NEG) MG/DL Urine Blood NEG (NEG) Urine Nitrite NEG (NEG) Ur Leukocyte Esterase TRACE H (NEG) Urine RBC 0 (0) /HPF Urine WBC 1-4 (0-4) /HPF Ur Squamous Epith Cells 1+ /LPF Urine Bacteria 1+ /LPF Urine Mucus TRACE /LPF COVID-19 (SHIRA) Negative (Negative) COVID-19 Clin Com See Note <MICKEY Price - Last Filed: 05/14/21 11:30> Lab Results 05/14/21 05/14/21 05/14/21 Range/Units 09:43 09:43 09:43 WBC 10.3 (4.8-10.8) X10*3/uL RBC 4.37 (4.20-5.50) X10*6/uL Hgb 13.0 (12.0-16.0) g/dl Hct 39.9 (37-47) % MCV 91.3 (80-98) fL MCH 29.7 (27.0-33.0) pg MCHC 32.6 (31.0-35.0) g/dl RDW 12.3 (11.0-16.0) % Plt Count 179 (160-400) X10*3/uL MPV 13.5 H (9.4-12.3) fL Immature Gran % (Auto) 0.4 (0.0-0.4) % Neut % (Auto) 54.0 (45-73) % Lymph % (Auto) 34.8 (20-40) % Graham % (Auto) 9.4 (2-11) % Eos % (Auto) 1.0 (0-4) % Baso % (Auto) 0.4 (0-2) % Lymph # (Auto) 3.6 (1.2-4.9) X10*3/uL Graham # (Auto) 1.0 (0.1-1.2) X10*3/uL Eos # (Auto) 0.1 (0.0-0.4) X10*3/uL Baso # (Auto) 0.0 (0.0-0.2) X10*3/uL Abs Immat Gran (auto) 0.04 H (0.00-0.03) X10*3/uL Absolute Neuts (auto) 5.5 (2.0-8.3) X10*3/uL Absolute Nucleated RBC 0.000 (0.0-0.012) X10*3/uL Nucleated RBC % (auto) 0.0 (0.0-0.2) /100WBC Hold Blue Top SEE NOTE Sodium 142 (135-145) mmol/L Potassium 4.4 (3.3-5.1) mmol/L Chloride 107 (96-108) mmol/L Carbon Dioxide 23 (22-29) mmol/L Anion Gap 16 (12-20) BUN 19 H (9-16) mg/dL Creatinine 0.78 (0.5-1.4) mg/dL Estim Creat Clear Calc 90.9 Estimated GFR > 60 Random Glucose 171 H D (60-115) mg/dL Calcium 9.5 D (8.4-10.2) mg/dL Magnesium 1.5 L (1.6-2.6) mg/dL Total Bilirubin 0.6 (0.0-1.0) mg/dL Direct Bilirubin 0.2 (0.0-0.5) mg/dL AST 18 (5-31) U/L ALT 14 (0-31) U/L Alkaline Phosphatase 41 (39-117) U/L Troponin I High Sens (<3.5-17.0) ng/L B-Natriuretic Peptide (<100) pg/mL Total Protein 7.6 (6.5-8.0) g/dL Albumin 4.3 (3.5-5.0) g/dL Urine Color Urine Appearance Urine pH (5.0-8.0) Ur Specific [place] (1.005-1.025) Urine Protein (NEG-TRACE) MG/DL Urine Glucose (UA) (NEG) MG/DL Urine Ketones (NEG) MG/DL Urine Blood (NEG) Urine Nitrite (NEG) Ur Leukocyte Esterase (NEG) Urine RBC (0) /HPF Urine WBC (0-4) /HPF Ur Squamous Epith Cells /LPF Urine Bacteria /LPF Urine Mucus /LPF COVID-19 (SHIRA) (Negative) COVID-19 Clin Com 05/14/21 05/14/21 05/14/21 Range/Units 09:43 09:44 09:45 WBC (4.8-10.8) X10*3/uL RBC (4.20-5.50) X10*6/uL Hgb (12.0-16.0) g/dl Hct (37-47) % MCV (80-98) fL MCH (27.0-33.0) pg MCHC (31.0-35.0) g/dl RDW (11.0-16.0) % Plt Count (160-400) X10*3/uL MPV (9.4-12.3) fL Immature Gran % (Auto) (0.0-0.4) % Neut % (Auto) (45-73) % Lymph % (Auto) (20-40) % Graham % (Auto) (2-11) % Eos % (Auto) (0-4) % Baso % (Auto) (0-2) % Lymph # (Auto) (1.2-4.9) X10*3/uL Graham # (Auto) (0.1-1.2) X10*3/uL Eos # (Auto) (0.0-0.4) X10*3/uL Baso # (Auto) (0.0-0.2) X10*3/uL Abs Immat Gran (auto) (0.00-0.03) X10*3/uL Absolute Neuts (auto) (2.0-8.3) X10*3/uL Absolute Nucleated RBC (0.0-0.012) X10*3/uL Nucleated RBC % (auto) (0.0-0.2) /100WBC Hold Blue Top Sodium (135-145) mmol/L Potassium (3.3-5.1) mmol/L Chloride (96-108) mmol/L Carbon Dioxide (22-29) mmol/L Anion Gap (12-20) BUN (9-16) mg/dL Creatinine (0.5-1.4) mg/dL Estim Creat Clear Calc Estimated GFR Random Glucose (60-115) mg/dL Calcium (8.4-10.2) mg/dL Magnesium (1.6-2.6) mg/dL Total Bilirubin (0.0-1.0) mg/dL Direct Bilirubin (0.0-0.5) mg/dL AST (5-31) U/L ALT (0-31) U/L Alkaline Phosphatase (39-117) U/L Troponin I High Sens < 3.5 (<3.5-17.0) ng/L B-Natriuretic Peptide < 10 (<100) pg/mL Total Protein (6.5-8.0) g/dL Albumin (3.5-5.0) g/dL Urine Color YELLOW Urine Appearance CLOUDY Urine pH 5.5 (5.0-8.0) Ur Specific [place] >= 1.030 H (1.005-1.025) Urine Protein TRACE (NEG-TRACE) MG/DL Urine Glucose (UA) NEG (NEG) MG/DL Urine Ketones NEG (NEG) MG/DL Urine Blood NEG (NEG) Urine Nitrite NEG (NEG) Ur Leukocyte Esterase TRACE H (NEG) Urine RBC 0 (0) /HPF Urine WBC 1-4 (0-4) /HPF Ur Squamous Epith Cells 1+ /LPF Urine Bacteria 1+ /LPF Urine Mucus TRACE /LPF COVID-19 (SHIRA) Negative (Negative) COVID-19 Clin Com See Note <Mick Glass MD - Last Filed: 06/15/21 16:13> ECG Data Attestation: I personally reviewed and interpreted this ECG as follows: <MICKEY Price - Last Filed: 05/14/21 11:30> ECG interpretation date: 05/14/21 <MICKEY Price - Last Filed: 05/14/21 11:30> ECG interpretation time: 11:30 <MICKEY Price - Last Filed: 05/14/21 11:30> Prior ECG tracings: available for review <MICKEY Price - Last Filed: 05/14/21 11:30> Interpretation: normal sinus rhythm, HR 81 bpm, normal [place] interval, No ST segment elevations or depressions <MICKEY Price - Last Filed: 05/14/21 11:30> Discharge Plan Discharge Clinical Impression: Asthma with exacerbation <MICKEY Price - Last Filed: 05/14/21 11:30> Patient Disposition: Home, Self-Care <MICKEY Price - Last Filed: 05/14/21 11:30> Instructions: Asthma (ED) <MICKEY Price - Last Filed: 05/14/21 11:30> Additional Instructions: Your chest x-ray was negative for pneumonia. Your lab workup was normal. You are being treated for asthma exacerbation with steroids, antibiotics and cough medicine. Please take as directed. Do your best to STOP SMOKING. Follow up with your doctor in 1 week. If you have any worsening symptoms come back to the ER for further evaluation. <MICKEY Price - Last Filed: 05/14/21 11:30> Prescriptions: New prednisone 10 mg tablets,dose pack 10 mg PO PER PKG DIR Qty: 48 RF: 0 azithromycin [Zithromax Z-Conrado] 250 mg tablet See Rx Instructions .ROUTE .COMPLEX Qty: 6 RF: 0 benzonatate [Tessalon Perles] 100 mg capsule 100 mg PO TID PRN (Reason: cough) Qty: 20 RF: 0 azithromycin 250 mg tablet See Rx Instructions .ROUTE .COMPLEX Qty: 6 RF: 0 prednisone 20 mg tablet 40 mg PO DAILY 5 Days Qty: 10 RF: 0 benzonatate [Tessalon Perles] 100 mg capsule 100 mg PO BID PRN (Reason: cough) Qty: 20 RF: 0 No Action baclofen 10 mg tablet 10 mg PO TID Qty: 90 RF: 5 lisinopril [Zestril] 10 mg tablet 10 mg PO DAILY RF: 0 metformin 1,000 mg tablet 1,000 mg PO DAILY RF: 0 albuterol sulfate [ProAir HFA] 90 mcg/actuation HFA aerosol inhaler 2 puff inhalation 6XD RF: 0 zolpidem [Ambien] 10 mg tablet 10 mg PO BEDTIME PRNRF: 0 diazepam [Valium] 5 mg tablet 5 mg PO ONCE PRN (Reason: painful procedure) Qty: 2 RF: 0 naproxen 500 mg tablet 500 mg PO BID PRN (Reason: for pain) Qty: 60 RF: 3 cyclobenzaprine 10 mg tablet 10 mg PO TID PRN (Reason: muscle spasm) Qty: 10 RF: 0 lidocaine [Lidoderm] 5 % adhesive patch,medicated 1 patch topical DAILY Qty: 15 RF: 0 (DME) Knee Brace Large-XLarge Misc See Rx Instructions .ROUTE .MEDSUPPLY Qty: 1 RF: 0 diclofenac sodium [Voltaren] 1 % gel 2 g topical QID Qty: 100 RF: 1 tizanidine 2 mg tablet 2 mg PO BEDTIME PRN (Reason: muscle spasticity) Qty: 30 RF: 0 glipizide 5 mg tablet 5 mg PO DAILY RF: 0 ergocalciferol (vitamin D2) 50 mcg (2,000 unit) tablet 50 mcg PO DAILY RF: 0 trazodone 100 mg tablet 100 mg PO BEDTIME PRNRF: 0 gabapentin 800 mg tablet 800 mg PO TID RF: 0 sertraline 50 mg tablet 50 mg PO DAILY RF: 0 tramadol 50 mg tablet 50 mg PO Q6H PRNRF: 0 ibuprofen 800 mg tablet 800 mg PO Q6H RF: 0 Trelegy Ellipta 200-62.5-25 mcg blister with device 1 inh inhalation DAILY 30 Days Qty: 60 RF: 12 nicotine 14 mg/24 hr patch 24 hour 1 patch transdermal DAILY 28 Days Qty: 28 RF: 4 <MICKEY Price - Last Filed: 05/14/21 11:30> Referrals: Raphael Parisi MD [Physician] - 1 week (asthma) <MICKEY Price - Last Filed: 05/14/21 11:30> Interventions: ED Discharge Assessment Last Done: 05/14/21 11:34 <MICKEY Price - Last Filed: 05/14/21 11:30> Discharge Date/Time: 05/14/21 11:35 <MICKEY Price - Last Filed: 05/14/21 11:30>
[2021-05-14 09:53] LABS: MANUAL DIFF FLAG NO
[2021-05-14 09:58] LABS: Glucose Urine UA NEG (NEG); Leukocyte Esterase Urine TRACE (NEG); Nitrite Urine NEG (NEG); PH 5.5 (5.0-8.0); Specific Gravity - Urine >= 1.030 (1.005-1.025); UACC Culture Trigger YES; Urine Blood NEG (NEG); Urine Ketones NEG (NEG); Urine Protein TRACE MG/DL (NEG-TRACE)
[2021-05-14 09:59] LABS: Appearance Urine CLOUDY; Color Urine YELLOW
[2021-05-14] MEDS: Albuterol Sulfate (0.083%) 2.5 MG/3 ML VIAL.NEB 10 MG INHALE (10:02)
[2021-05-14 10:04] VITALS: PULSE 81; O2SAT 98
[2021-05-14 10:05] LABS: Basophils Percent Auto 0.4 % (0-2); Eosinophils Absolute Auto 0.1 X10*3/uL (0.0-0.4); Hematocrit 39.9 % (37-47); Imm Gran Abs Auto 0.04 X10*3/uL (0.00-0.03); Imm Gran Pct Auto 0.4 % (0.0-0.4); Lymphocytes Absolute Auto 3.6 X10*3/uL (1.2-4.9); Lymphocytes Percent Auto 34.8 % (20-40); Mean Corpuscular HGB Conc 32.6 g/dl (31.0-35.0); Mean Corpuscular Hemoglobin 29.7 pg (27.0-33.0); Mean Corpuscular Volume 91.3 fL (80-98); Mean Platelet Volume 13.5 fL (9.4-12.3); Monocytes Percent Auto 9.4 % (2-11); Neutrophils Absolute Auto 5.5 X10*3/uL (2.0-8.3); Platelet Count 179 X10*3/uL (160-400); Red Blood Count 4.37 X10*6/uL (4.20-5.50); Red Cell Distribution Width 12.3 % (11.0-16.0); White Blood Count 10.3 X10*3/uL (4.8-10.8)
[2021-05-14 10:13] LABS: Bacteria Urine 1+ /LPF; Mucus Urine TRACE /LPF; RBC Urine 0 /HPF (0); Squamous Epithelial Cell Urine 1+ /LPF
[2021-05-14 10:15] LABS: COVID-19 Test Negative (Negative); IDNOW Serial# 9DD0AD1C
[2021-05-14] MEDS: Magnesium Sulfate/H2O 2 GM/50 ML PIGGYBACK IV (10:17)
[2021-05-14] MEDS: methylPREDNISolone Sod Succ 125 MG/2 ML VIAL IVPUSH (10:17)
[2021-05-14 10:40] LABS: Alanine Aminotransferase 14 U/L (0-31); Albumin Level 4.3 g/dL (3.5-5.0); Alkaline Phosphatase 41 U/L (39-117); Anion Gap 16 (12-20); Aspartate Amino Transferase 18 U/L (5-31); Bilirubin Direct 0.2 mg/dL (0.0-0.5); Bilirubin Total 0.6 mg/dL (0.0-1.0); Blood Urea Nitrogen 19 mg/dL (9-16); Calcium 9.5 mg/dL (8.4-10.2); Carbon Dioxide 23 mmol/L (22-29); Chloride 107 mmol/L (96-108); Creatinine Clr Calc Pharmacy 90.9; Estimated Glomerular Filt Rate > 60; Glucose Random 171 mg/dL (60-115); Magnesium 1.5 mg/dL (1.6-2.6); Potassium 4.4 mmol/L (3.3-5.1); Sodium 142 mmol/L (135-145); Total Protein 7.6 g/dL (6.5-8.0)
[2021-05-14 10:44] LABS: Troponin-I High Sensitivity < 3.5 ng/L (<3.5-17.0)
[2021-05-14 10:52] LABS: B Type Natriuretic Peptide < 10 pg/mL (<100)
[2021-05-14 11:34] VITALS: PULSE 90; O2SAT 97
== END 2021-05-14 11:35 | disposition home or self-care (01) ==
PROVIDERS: Physician Assistant; Emergency Provider Emergency Medicine; PCP Internal Medicine
DX: J45.901 Unspecified asthma with (acute) exacerbation (principal); R06.02 Shortness of breath; I10 Essential (primary) hypertension; E11.9 Type 2 diabetes mellitus without complications; F17.210 Nicotine dependence, cigarettes, uncomplicated; Z79.84 Long term (current) use of oral hypoglycemic drugs; Z79.899 Other long term (current) drug therapy; Z20.822 Contact with and (suspected) exposure to COVID-19
CPT/HCPCS: 36415; 71045; 80048; 80076; 81001; 81003; 83735; 83880; 84484; 85025; 87086; 87635; 93005; 94640; 94644; 96365; 96366; 96375; 99283; 99284; J2930; J3475

== ENCOUNTER → 2021-05-20 13:52 | Outpatient (BNVA) | payer MEDICAID, SELFPAY | PROVIDERS: PCP Internal Medicine; Visit Provider Hospitalist | DX: J44.9 Chronic obstructive pulmonary disease, unspecified (principal); F17.200 Nicotine dependence, unspecified, uncomplicated | CPT/HCPCS: 99202 ==

== ENCOUNTER 2021-06-06 14:21 | Outpatient (REF) | payer MEDICAID, SELFPAY ==
--- NOTE | ~2021-06-06 | CT_ITS ---
EXAMINATION: CT CHEST SCREENING CLINICAL INFORMATION: Smoking history. COMPARISON: Previous chest x-ray most recent April 2021. TECHNIQUE: Multidetector volumetric CT imaging of the chest is performed without contrast using low dose technique. Additional 2D coronal and sagittal reformatted images and axial 3D maximum intensity projection (MIP) images are generated on the CT workstation. This CT examination was performed using dose optimization techniques as appropriate, variously including the following: *Automated exposure control. *Adjustment of mA and/or kV according to patient size (this includes techniques or standardized protocols for targeted exams where dose is matched to indication/reason for exam; i.e. extremities or head). *Use of iterative reconstruction technique. DLP: 87 mGy-cm FINDINGS: LUNGS: The lungs are clear with no evidence of inflammation or nodules. MEDIASTINUM: There are small mediastinal lymph nodes. No enlarged lymph nodes are seen. There is mild coronary artery calcification. There is a small pericardial effusion. PLEURA: There is no pleural effusion. No pleural mass or thickening. AXILLA: No lymphadenopathy. UPPER ABDOMEN: The gallbladder is high in attenuation, similar in attenuation to the liver. No gallstones are seen. OSSEOUS STRUCTURES: There are degenerative changes of the spine. CT/CT lung screening IMPRESSION: No pulmonary nodule seen. Mild coronary artery calcification and small pericardial effusion. ASSESSMENT: Lung-RADS category 1: Negative. RECOMMENDATION: Annual low-dose chest CT follow up recommended.
== END 2021-06-06 14:22 | disposition home or self-care (01) ==
LOC: HO.CT 14:21
PROVIDERS: PCP Internal Medicine; Visit Provider Surgery
DX: Z12.2 Encounter for screening for malignant neoplasm of respiratory organs (principal); F17.210 Nicotine dependence, cigarettes, uncomplicated
CPT/HCPCS: 71271

== ENCOUNTER 2021-07-04 14:23 | Outpatient (REF) | payer MEDICAID, SELFPAY ==
--- NOTE | 2021-07-04 16:48 | PFT_ITS ---
Forced vital capacity and FEV1 normal. [id number] and MVV are also normal. Post bronchodilator therapy, there is no significant change. Total lung capacity slightly decreased. Residual volume is moderately decreased. Diffusion capacity is slightly decreased. CONCLUSION: A mild degree of restrictive pulmonary disorder. No obstructive airway disorder. No response to bronchodilator therapy. Clinical correlation is recommended. MD ROSA Sharma/ALISHA / [id number]
== END 2021-07-04 14:24 | disposition home or self-care (01) ==
LOC: HO.RESP 14:23
PROVIDERS: PCP Internal Medicine; Visit Provider Hospitalist
DX: R06.00 Dyspnea, unspecified (principal); J44.9 Chronic obstructive pulmonary disease, unspecified; F17.200 Nicotine dependence, unspecified, uncomplicated
CPT/HCPCS: 94060; 94727; 94729

== ENCOUNTER 2021-07-08 06:06 | Outpatient (REF) | payer MEDICAID, SELFPAY ==
--- NOTE | ~2021-07-08 | FL_ITS ---
EXAMINATION: XR FLUOROSCOPY WITH IMAGES CLINICAL INFORMATION: Spondylosis without myelopathy or radiculopathy. COMPARISON: None. TECHNIQUE: Fluoroscopy performed by Char Feliz NP Fluoroscopy time: 1.0 minutes DAP: 7.40 Gycm2 Images: 8 FINDINGS: There are needles were positioned adjacent to the bilateral pedicles L3, L4 and L5 vertebra with adjacent contrast for pain management. Visualized bones are grossly unremarkable except for mild ventral spondylosis. FL/FL guidance in treatment room IMPRESSION: Fluoroscopy was provided to the referring physician for pain management.
== END 2021-07-08 06:07 | disposition home or self-care (01) ==
LOC: HO.RADIR 06:06
PROVIDERS: Visit Provider Anesthesiology
DX: M47.27 Other spondylosis with radiculopathy, lumbosacral region (principal); M47.816 Spondylosis without myelopathy or radiculopathy, lumbar region; M25.552 Pain in left hip
CPT/HCPCS: 64493; 64494; 64495; J2250; Q9967

== ENCOUNTER → 2021-07-11 09:05 | Outpatient (BNVA) | payer MEDICAID, SELFPAY | PROVIDERS: PCP Internal Medicine; Visit Provider Internal Medicine | DX: G89.18 Other acute postprocedural pain (principal); M47.27 Other spondylosis with radiculopathy, lumbosacral region | CPT/HCPCS: 99212 ==

== ENCOUNTER 2021-07-15 07:51 | Outpatient (REF) | payer MEDICAID, SELFPAY ==
--- NOTE | ~2021-07-15 | FL_ITS ---
EXAMINATION: XR FLUOROSCOPY WITH IMAGES CLINICAL INFORMATION: M47.27 - Other spondylosis with radiculopathy, lumbosacra COMPARISON: None. TECHNIQUE: Fluoroscopy performed by Dr. Catalino Bhardwaj. Fluoroscopy time: 0.1 minutes DAP: 9.25 Gycm2 Images: 2 FINDINGS: There is a spinal needle overlying the outer right L3 neural foramen. There is early contrast suggested in the nerve sheath. No visible vascular communication. FL/FL guidance in treatment room IMPRESSION: Fluoroscopy for pain management procedures.
== END 2021-07-15 07:52 | disposition home or self-care (01) ==
LOC: HO.RADIR 07:51
PROVIDERS: Visit Provider Anesthesiology
DX: M47.27 Other spondylosis with radiculopathy, lumbosacral region (principal); M25.552 Pain in left hip; M47.816 Spondylosis without myelopathy or radiculopathy, lumbar region
CPT/HCPCS: 64483; J3300; Q9967

== ENCOUNTER 2022-04-13 09:40 | Emergency (ER) | payer MEDICAID, SELFPAY ==
[2022-04-13 10:05] VITALS: BP 156/90; PULSE 97; RESP 18; TEMP 36.9; O2SAT 94; BMI 43.4
--- NOTE | 2022-04-13 11:18 | ED.BACK ---
HPI - Back Pain/Injury General Chief Complaint: Back Pain/Injury Stated Complaint: lower back pain Time Seen by Provider: 04/13/22 11:14 History of Present Illness HPI Narrative: Patient complains of left sided back pain radiating down the left leg with a tingling feeling, she has had this feeling before This episode has lasted for 2 weeks it is not accompanied by any changes to bowel or bladder there is no weakness, there is no precipitating injury no fall no lifting injury Related Data Home Medications Medication Instructions Recorded Confirmed albuterol sulfate 90 mcg/actuation 2 puff INHALATION 6XD 11/28/20 05/20/21 aerosol inhaler (ProAir HFA) lisinopril 10 mg tablet (Zestril) 10 mg PO DAILY 11/28/20 05/20/21 metformin 1,000 mg tablet 1,000 mg PO DAILY 11/28/20 05/20/21 zolpidem 10 mg tablet (Ambien) 10 mg PO BEDTIME PRN 11/28/20 05/20/21 ergocalciferol (vitamin D2) 50 mcg 50 mcg PO DAILY 05/20/21 05/20/21 (2,000 unit) tablet gabapentin 800 mg tablet 800 mg PO TID 05/20/21 05/20/21 glipizide 5 mg tablet 5 mg PO DAILY 05/20/21 05/20/21 ibuprofen 800 mg tablet 800 mg PO Q6H 05/20/21 05/20/21 sertraline 50 mg tablet 50 mg PO DAILY 05/20/21 05/20/21 trazodone 100 mg tablet 100 mg PO BEDTIME PRN 05/20/21 05/20/21 Previous Rx's Medication Instructions Recorded baclofen 10 mg tablet 10 mg PO TID #90 tab 11/07/20 cyclobenzaprine 10 mg tablet 10 mg PO TID PRN #10 tab 11/20/20 lidocaine 5 % topical patch 1 patch TOPICAL DAILY #15 ea 11/20/20 (Lidoderm) diclofenac sodium 1 % topical gel 2 g TOPICAL QID #100 g 03/07/21 (Voltaren) leg brace (Knee Brace Large-XLarge) #1 ea 03/07/21 tizanidine 2 mg tablet 2 mg PO BEDTIME PRN #30 tab 04/30/21 azithromycin 250 mg tablet See Rx Instructions .ROUTE 05/14/21 .COMPLEX #6 tab azithromycin 250 mg tablet See Rx Instructions .ROUTE 05/14/21 (Zithromax Z-Conrado) .COMPLEX #6 tab benzonatate 100 mg capsule 100 mg PO BID PRN #20 cap 05/14/21 (Tessalon Perles) benzonatate 100 mg capsule 100 mg PO TID PRN #20 cap 05/14/21 (Tessalon Perles) prednisone 10 mg tablets in a dose 10 mg PO PER PKG DIR #48 ea 05/14/21 pack prednisone 20 mg tablet 40 mg PO DAILY 5 Days #10 tab 05/14/21 fluticasone fur. 200 mcg-umeclid 1 inh INHALATION DAILY 30 Days #60 05/20/21 62.5 mcg-vilant 25 mcg ea inhalat.powder (Trelegy Ellipta) nicotine 14 mg/24 hr daily 1 patch TRANSDERMAL DAILY 28 Days 05/20/21 transdermal patch #28 ea diazepam 5 mg tablet (Valium) 5 mg PO ONCE PRN #2 tab 06/03/21 naproxen 500 mg tablet 500 mg PO BID PRN #60 tab 06/10/21 oxycodone 5 mg tablet 5 mg PO TID PRN #20 tab 07/11/21 cyclobenzaprine 5 mg tablet 5 mg PO TID PRN #14 tab 04/13/22 oxycodone 5 mg tablet 5 mg PO Q6H PRN #10 tab 04/13/22 oxycodone 5 mg tablet 5 mg PO Q6H PRN #14 tab 04/13/22 Allergies Allergy/AdvReac Type Severity Reaction Status Date / Time No Known Allergies Allergy Verified 07/15/21 15:26 [No Known Allergies*] Review of Systems Review of Systems: Positive for left-sided back pain radiating down the leg with tingling but no weakness no loss of sensation No headache no neck pain no chest pain no abdominal pain no loss of sensation no muscle weakness no rash no changes to bowel or bladder Yes all other systems are reviewed and are negative [facility] Past Medical History Source: nursing notes reviewed Medical History (Updated 04/13/22 @ 11:24 by MICKEY Kaufman) Asthma Asthma-COPD overlap syndrome Hip pain HTN (hypertension) MGUS (monoclonal gammopathy of unknown significance) Obesity Peripheral neuropathy Personal history of nicotine dependence Spondylosis of lumbosacral spine with radiculopathy Type 2 diabetes mellitus with diabetic neuropathy, without long-term current use of insulin Family History Family History Father Heart disease Stroke Mother Heart disease Maternal Uncle Colon cancer Maternal Uncle Throat cancer Social History Social History (Updated 06/06/21 @ 14:24 by Lis Beckman PA-C) Alcohol intake: current Alcohol intake frequency: does not drink Patient Tobacco Use Status: Current everyday Tobacco user Tobacco use type: Cigarette Cigarettes Per Day: 5 Years Smoked: 36 (onset 19yo - 1/2-1ppd - 27pyh) Advance Directives: No Advance Directives Information Provided: No Physical Exam Vital Signs: Vital Signs: Last Vital Signs Temp 98.4 F 04/13/22 10:05 Pulse 97 04/13/22 10:05 Resp 18 04/13/22 10:05 BP 156/90 H 04/13/22 10:05 Pulse Ox 94 04/13/22 10:05 BMI result Body Mass Index 43.4 General appearance is no acute distress Head is normocephalic atraumatic Neck is supple nontender Respiratory no distress Abdomen soft nontender The back had left-sided lower lumbar tenderness, no CVA tenderness, skin is normal no evidence of skin infection or rash Skin no rashes Extremities full range of motion x4 Neuro motor is 5/5 x4, gait and balance are normal, sensation intact and symmetrical in both lower extremities Course Course Course Narrative: Patient with left-sided sciatica with no weakness or changes to bowel or bladder has been taking tramadol with no effect so I am doing a short 10 tablet oxycodone prescription, she has had prednisone before to no effect so I did not write for prednisone and she will follow with pain management and her doctors Discharge Plan Discharge Clinical Impression: Sciatica Patient Disposition: Home, Self-Care Additional Instructions: Follow with your pain management and regular doctor for further evaluation Return any time any concerns Prescriptions: New oxycodone 5 mg tablet 5 mg PO Q6H PRN (Reason: pain) Qty: 14 0RF oxycodone 5 mg tablet 5 mg PO Q6H PRN (Reason: pain) Qty: 10 0RF cyclobenzaprine 5 mg tablet 5 mg PO TID PRN (Reason: muscle spasm) Qty: 14 0RF No Action baclofen 10 mg tablet 10 mg PO TID Qty: 90 5RF lisinopril [Zestril] 10 mg tablet 10 mg PO DAILY 0RF metformin 1,000 mg tablet 1,000 mg PO DAILY 0RF albuterol sulfate [ProAir HFA] 90 mcg/actuation HFA aerosol inhaler 2 puff inhalation 6XD 0RF zolpidem [Ambien] 10 mg tablet 10 mg PO BEDTIME PRN0RF diazepam [Valium] 5 mg tablet 5 mg PO ONCE PRN (Reason: painful procedure) Qty: 2 0RF Rx Instructions: please take 1 tablet one hour prior to procedure naproxen 500 mg tablet 500 mg PO BID PRN (Reason: for pain) Qty: 60 3RF cyclobenzaprine 10 mg tablet 10 mg PO TID PRN (Reason: muscle spasm) Qty: 10 0RF lidocaine [Lidoderm] 5 % adhesive patch,medicated 1 patch topical DAILY Qty: 15 0RF Rx Instructions: leave on most painful area for up to 12 hrs prednisone 10 mg tablets,dose pack 10 mg PO PER PKG DIR Qty: 48 0RF Rx Instructions: Take 4 tabs x4 days, then 3 tabs x4 days, then 2 tabs x4 days, then 1 tab x4 days azithromycin [Zithromax Z-Conrado] 250 mg tablet See Rx Instructions .ROUTE .COMPLEX Qty: 6 0RF Rx Instructions: take 500 mg today (day 1), then 250 mg for 4 days (days 2-5) benzonatate [Tessalon Perles] 100 mg capsule 100 mg PO TID PRN (Reason: cough) Qty: 20 0RF azithromycin 250 mg tablet See Rx Instructions .ROUTE .COMPLEX Qty: 6 0RF Rx Instructions: take 500 mg today (day 1), then 250 mg for 4 days (days 2-5) prednisone 20 mg tablet 40 mg PO DAILY 5 Days Qty: 10 0RF benzonatate [Tessalon Perles] 100 mg capsule 100 mg PO BID PRN (Reason: cough) Qty: 20 0RF (DME) Knee Brace Large-XLarge Misc See Rx Instructions .ROUTE .MEDSUPPLY Qty: 1 0RF Rx Instructions: As directed diclofenac sodium [Voltaren] 1 % gel 2 g topical QID Qty: 100 1RF Rx Instructions: apply 2 gram to L knee twice daily as needed tizanidine 2 mg tablet 2 mg PO BEDTIME PRN (Reason: muscle spasticity) Qty: 30 0RF Rx Instructions: DO NOT TAKE WITH CYCLOBENZAPRINE OR BACLOFEN. Start with 1/2 tab as medication can be sedating. oxycodone 5 mg tablet 5 mg PO TID PRN (Reason: pain) Qty: 20 0RF Rx Instructions: Patient will bring in remaining tramadol tablets to be returned/wasted at the pharmacy glipizide 5 mg tablet 5 mg PO DAILY 0RF ergocalciferol (vitamin D2) 50 mcg (2,000 unit) tablet 50 mcg PO DAILY 0RF trazodone 100 mg tablet 100 mg PO BEDTIME PRN0RF gabapentin 800 mg tablet 800 mg PO TID 0RF sertraline 50 mg tablet 50 mg PO DAILY 0RF ibuprofen 800 mg tablet 800 mg PO Q6H 0RF Trelegy Ellipta 200-62.5-25 mcg blister with device 1 inh inhalation DAILY 30 Days Qty: 60 12RF nicotine 14 mg/24 hr patch 24 hour 1 patch transdermal DAILY 28 Days Qty: 28 4RF
== END 2022-04-13 11:45 | disposition home or self-care (01) ==
PROVIDERS: Emergency Provider Emergency Medicine; PCP Internal Medicine
DX: M54.42 Lumbago with sciatica, left side (principal); I10 Essential (primary) hypertension; E11.9 Type 2 diabetes mellitus without complications
CPT/HCPCS: 99283

== ENCOUNTER 2022-06-02 05:57 | Outpatient (REF) | payer MEDICAID, SELFPAY | END 2022-06-02 05:58 | disposition home or self-care (01) | LOC: HO.RADIR 05:57 | PROVIDERS: Visit Provider Anesthesiology | DX: Z13.89 Encounter for screening for other disorder (principal) ==

== ENCOUNTER → 2022-08-18 09:23 | Outpatient (BNVA) | payer MEDICAID, SELFPAY | PROVIDERS: PCP Pediatrics; Visit Provider Hospitalist | DX: J44.9 Chronic obstructive pulmonary disease, unspecified (principal); F17.210 Nicotine dependence, cigarettes, uncomplicated; Z23 Encounter for immunization | CPT/HCPCS: 90471; 90686; 99212 ==

== ENCOUNTER → 2022-08-24 09:48 | Outpatient (BNVA) | payer MEDICARE, MEDICAID, SELFPAY | PROVIDERS: PCP Pediatrics; Visit Provider Anesthesiology | DX: M47.816 Spondylosis without myelopathy or radiculopathy, lumbar region (principal) | CPT/HCPCS: 99212 ==

== ENCOUNTER 2022-09-10 10:42 | Outpatient (REF) | payer MEDICARE, MEDICAID, SELFPAY ==
--- NOTE | ~2022-09-10 | XR_ITS ---
EXAMINATION: XR KNEE, LEFT CLINICAL INFORMATION: Fall COMPARISON: Previous x-ray February 2021 TECHNIQUE: 2 views of the left knee. FINDINGS: Bones and soft tissues are normal. No fracture or joint effusion. Alignment is anatomic. Joint spaces are well maintained. No abnormal soft tissue calcification. XR/XR knee LT 2V IMPRESSION: Normal left knee.
--- NOTE | ~2022-09-10 | XR_ITS ---
EXAMINATION: XR HIP, LEFT CLINICAL INFORMATION: Fall COMPARISON: Previous x-ray most recent January 2021 TECHNIQUE: Two views of the left hip. FINDINGS: Bone alignment is normal. No fracture or dislocation. There is arthritis of the left hip joint with mild joint space narrowing, osteophyte formation and subchondral cyst formation. This is similar to previous exam. Soft tissues are unremarkable. XR/XR hip LT min 2V IMPRESSION: No fracture or dislocation. Left hip arthritis.
== END 2022-09-10 10:43 | disposition home or self-care (01) ==
LOC: HO.XRAY 10:42
PROVIDERS: PCP Pediatrics; Visit Provider Pediatrics
DX: Z91.81 History of falling (principal)
CPT/HCPCS: 73502; 73560

== ENCOUNTER 2022-09-15 06:11 | Outpatient (REF) | payer MEDICARE, MEDICAID, SELFPAY ==
--- NOTE | ~2022-09-15 | FL_ITS ---
EXAMINATION: XR FLUOROSCOPY WITH IMAGES CLINICAL INFORMATION: Spondylosis with radiculopathy. Lumbar sacral region. COMPARISON: July 15, 2021 TECHNIQUE: Fluoroscopy performed by Dr. Catalino Bhardwaj. Fluoroscopy time: 0.5 minutes. Cumulative Dose: 26.9 mGy. DAP: 7.33 Gy-cm2. Images: 4. FINDINGS: [place] appear to be seen overlying the bilateral L4 and L5 neural foramina with some contrast which appears to be in a nerve sheaths. FL/FL guidance in treatment room IMPRESSION: Intraoperative fluoroscopy for pain management procedure.
== END 2022-09-15 06:12 | disposition home or self-care (01) ==
LOC: CF 06:11
PROVIDERS: Visit Provider Anesthesiology
DX: M47.27 Other spondylosis with radiculopathy, lumbosacral region (principal); M25.552 Pain in left hip; M47.816 Spondylosis without myelopathy or radiculopathy, lumbar region
CPT/HCPCS: 64493; 64494; J3300

== ENCOUNTER 2022-09-16 09:41 | Outpatient (REF) | payer MEDICARE, MEDICAID, SELFPAY ==
--- NOTE | ~2022-09-16 | CT_ITS ---
EXAMINATION: CT CHEST SCREENING CLINICAL INFORMATION: Current smoker COMPARISON: Previous chest CT most recent May 2021 TECHNIQUE: Multidetector volumetric CT imaging of the chest is performed without contrast using low dose technique. Additional 2D coronal and sagittal reformatted images and axial 3D maximum intensity projection (MIP) images are generated on the CT workstation. This CT examination was performed using dose optimization techniques as appropriate, variously including the following: *Automated exposure control *Adjustment of mA and/or kV according to patient size (this includes techniques or standardized protocols for targeted exams where dose is matched to indication/reason for exam; i.e. extremities or head) *Use of iterative reconstruction technique DLP: 421 mGy-cm FINDINGS: LUNGS: There is a 2 mm left lower lobe nodule axial image 303 series 5. In retrospect this may be stable. There is a 2 mm peripheral or subpleural left lower lobe nodule axial image 308 series 5 that is new. This probably represents a subpleural lymph node. The lungs are otherwise clear. MEDIASTINUM: Normal heart size. There are small stable pericardial effusion. No enlarged hilar or mediastinal lymph nodes. The visualized thyroid gland is normal. Normal caliber thoracic aorta. CORONARY ARTERY CALCIFICATION: Mild PLEURA: There is no pleural effusion. No pleural mass or thickening. AXILLA: No lymphadenopathy. UPPER ABDOMEN: Small gallstone in the gallbladder. OSSEOUS STRUCTURES: There are degenerative changes of the spine. CT/CT lung screening IMPRESSION: Small left lower lobe pulmonary nodules. ASSESSMENT: Lung-RADS category 2: Benign RECOMMENDATION: Annual low-dose chest CT follow-up.
== END 2022-09-16 09:42 | disposition home or self-care (01) ==
LOC: HO.CT 09:41
PROVIDERS: PCP Pediatrics; Visit Provider Physician Assistant Medical
DX: Z12.2 Encounter for screening for malignant neoplasm of respiratory organs (principal); F17.210 Nicotine dependence, cigarettes, uncomplicated
CPT/HCPCS: 71271

== ENCOUNTER → 2022-10-08 09:49 | Outpatient (BNVA) | payer OTHER, SELFPAY | PROVIDERS: PCP Pediatrics; Visit Provider Anesthesiology | DX: M47.27 Other spondylosis with radiculopathy, lumbosacral region (principal); M47.816 Spondylosis without myelopathy or radiculopathy, lumbar region; M53.3 Sacrococcygeal disorders, not elsewhere classified; M46.1 Sacroiliitis, not elsewhere classified; M25.552 Pain in left hip | CPT/HCPCS: 99212 ==

== ENCOUNTER → 2023-01-13 14:23 | Outpatient (BNVA) | payer OTHER, SELFPAY | PROVIDERS: PCP Pediatrics; Visit Provider Anesthesiology | DX: M47.27 Other spondylosis with radiculopathy, lumbosacral region (principal); M25.552 Pain in left hip; M47.816 Spondylosis without myelopathy or radiculopathy, lumbar region; M46.1 Sacroiliitis, not elsewhere classified; M53.3 Sacrococcygeal disorders, not elsewhere classified | CPT/HCPCS: 99212 ==

== ENCOUNTER 2023-02-09 06:30 | Outpatient (REF) | payer OTHER, SELFPAY ==
--- NOTE | ~2023-02-09 | FL_ITS ---
EXAMINATION: XR FLUOROSCOPY WITH IMAGES CLINICAL INFORMATION: M53.3 - Sacrococcygeal disorders, not elsewhere classified COMPARISON: Pelvic radiographs 02/15/2021 TECHNIQUE: Fluoroscopy Supervised By: Dr. Catalino Bhardwaj. Fluoroscopy Time: 0.2 minutes. Cumulative Dose: 14.1 mGy. DAP: 3.85 Gycm2. Images: 2. FINDINGS: There is a spinal needle overlying the mid to lower left SI joint and a spinal needle overlying the mid to lower right SI joint. There is contrast in the periarticular soft tissues with probable early intra-articular contrast. No vasculature communication appreciated. FL/FL guidance in treatment room IMPRESSION: Fluoroscopy for pain management procedure.
== END 2023-02-09 06:31 | disposition home or self-care (01) ==
LOC: CF 06:30
PROVIDERS: Visit Provider Anesthesiology
DX: M47.27 Other spondylosis with radiculopathy, lumbosacral region (principal); M25.552 Pain in left hip; M47.816 Spondylosis without myelopathy or radiculopathy, lumbar region; M46.1 Sacroiliitis, not elsewhere classified; M53.3 Sacrococcygeal disorders, not elsewhere classified
CPT/HCPCS: 27096; J2795

== ENCOUNTER → 2023-02-15 10:17 | Outpatient (BNVA) | payer OTHER, SELFPAY | PROVIDERS: PCP Pediatrics; Visit Provider Anesthesiology | DX: M47.27 Other spondylosis with radiculopathy, lumbosacral region (principal); M25.552 Pain in left hip; M47.816 Spondylosis without myelopathy or radiculopathy, lumbar region | CPT/HCPCS: Q3014 ==

== ENCOUNTER → 2023-02-26 09:31 | Outpatient (BNVA) | payer OTHER, SELFPAY | PROVIDERS: PCP Pediatrics; Visit Provider Hospitalist | DX: J44.9 Chronic obstructive pulmonary disease, unspecified (principal); F17.210 Nicotine dependence, cigarettes, uncomplicated | CPT/HCPCS: 99212 ==